=== PATIENT | male | born 1955 | race Caucasian/White ===

== ENCOUNTER 2020-10-12 22:09 | Inpatient (IN) | payer MEDICARE ==
[2020-10-12] MEDS ORDERED: IPRATROPIUM/ALBUTEROL 0.5-2.5 MG/3 ML AMPUL NEB ONE (22:23)
[2020-10-12] MEDS: ALBUTEROL SULFATE 0.083% NEB 2.5 MG/3 ML AMPUL NEB SCH ×2 (22:29→22:39)
[2020-10-12 23:08] LABS: ABSOLUTE BASOPHILS # (AUTO) 0.1 10^3/uL (0.0-0.2); ABSOLUTE EOSINOPHILS # (AUTO) 0.6 10^3/uL (0.0-0.6); ABSOLUTE LYMPHOCYTES (AUTO) 3.1 10^3/uL (0.5-4.7); ABSOLUTE MONOCYTES (AUTO) 0.8 10^3/uL (0.1-1.4); ABSOLUTE NEUT (AUTO) 5.5 10^3/uL (1.7-8.2); EOSINOPHILS % (AUTO) 6.2 % (0-6); HEMATOCRIT 37.2 % (37.9-51.0); HEMOGLOBIN 12.3 g/dL (13.5-17.0); LYMPHOCYTES % (AUTO) 30.3 % (13-45); MEAN CORPUSCULAR HEMOGLOBIN 33.3 pg (27.0-33.4); MEAN CORPUSCULAR HGB CONC 33.2 g/dL (32.0-36.0); MEAN CORPUSCULAR VOLUME 100 fl (80-97); MONOCYTES % (AUTO) 7.8 % (3-13); PLATELET COUNT 256 10^3/uL (150-450); RED BLOOD COUNT 3.71 10^6/uL (4.35-5.55); RED CELL DISTRIBUTION WIDTH 14.3 % (11.5-14.0); SEGMENTED NEUTROPHILS % (AUTO) 54.7 % (42-78); TOTAL CELLS COUNTED % (AUTO) 100 %; WHITE BLOOD COUNT 10.1 10^3/uL (4.0-10.5)
[2020-10-12] MEDS ORDERED: ONDANSETRON HCL INJ/PF 4 MG/2 ML SDV IV ONE (23:10)
[2020-10-12] MEDS ORDERED: ACETAMINOPHEN 325 MG TABLET PO ONE (23:11)
--- NOTE | 2020-10-12 23:14 | ER Document Report ---
ED Respiratory Problem - General Chief Complaint: Respiratory Distress Stated Complaint: SHORTNESS OF BREATH Time Seen by Provider: 10/12/20 23:00 Notes: Patient is a 65-year-old male who comes to the emergency department for chief complaint of difficulty breathing that started a couple of hours prior to her arrival. Patient comes by EMS, reportedly patient was initially in the 70s oxygen saturation, had labored breathing, expiratory wheezes. Patient was given albuterol, Xopenex, 125 mg of Solu-Medrol. Patient was placed on CPAP origina lly and transitioned to nasal cannula upon improvement on arrival to the emergency department per nursing staff. Patient states he feels much improved now, he states that after the treatments he started getting a headache, he denies chest pain, cough, fever, or any other complaints at this time. Patient has a history of COPD, admits that he just started smoking again this week. He had a negative Covid screening by EMS, denies Covid exposures. Past medical history of hypertension, COPD, he is on Suboxone, and he has aortic valve disease and is scheduled for aortic valve replacement in the upcoming weeks at [facility]. - Related Data Allergies/Adverse Reactions: No Known Allergies Allergy (Unverified 10/12/20 22:23) Past Medical History - General Information source: Patient - Social History Smoking Status: Current Every Day Smoker Smoking Education Provided: Yes - <3 min Frequency of alcohol use: None Drug Abuse: None Lives with: Family Family History: Reviewed & Not Pertinent Patient has homicidal ideation: No - Past Medical History Cardiac Medical History: Reports: Hx Congestive Heart Failure, Hx Coronary Artery Disease, Hx Hypercholesterolemia, Hx Hypertension Pulmonary Medical History: Reports: Hx COPD - Immunizations Immunizations up to date: Yes Hx Diphtheria, Pertussis, Tetanus Vaccination: Yes Review of Systems - Review of Systems Constitutional: No symptoms reported EENT: No symptoms reported Cardiovascular: See HPI Respiratory: See HPI Gastrointestinal: No symptoms reported Genitourinary: No symptoms reported Male Genitourinary: No symptoms reported Musculoskeletal: No symptoms reported Skin: No symptoms reported Hematologic/Lymphatic: No symptoms reported Neurological/Psychological: No symptoms reported Physical Exam - Vital signs Vitals: Temp 97.8 F 10/12/20 22:09 - Notes Notes: GENERAL: Alert, interacts well. No acute distress. HEAD: Normocephalic, atraumatic. EYES: Pupils equal, round, and reactive to light. Extraocular movements intact. ENT: Oral mucosa moist, tongue midline. Oropharynx unremarkable. Airway patent. NECK: Full range of motion. Supple. Trachea midline. No lymphadenopathy. LUNGS: Decreased breath sounds bilaterally. Scant expiratory wheezes and coarse breath sounds bilaterally. No tachypnea or labored breathing HEART: Regular rate and rhythm. No murmur ABDOMEN: Soft, non-tender. Non-distended. EXTREMITIES: Moves all 4 extremities spontaneously. 1+ pitting edema bilaterally. Normal distal neurovascular exam. No cyanosis. BACK: no cervical, thoracic, lumbar midline tenderness. No saddle anesthesia, normal distal neurovascular exam. Moves all extremities in full range of motion. NEUROLOGICAL: Alert and oriented x3. Normal speech. Cranial nerves II through XII grossly intact. Strength 5/5 in all extremities. PSYCH: Normal affect, normal mood. SKIN: Warm, dry, normal turgor. No rashes or lesions noted. Course - Re-evaluation Re-evalutation: Patient with a new oxygen requirement, expiratory wheezes, and lower extremity edema. He was initially hypertensive as well. I suspect mixed COPD and CHF exacerbation. Patient significantly improved with breathing treatments and he received steroids from EMS. Patient given an additional DuoNeb for wheezing. X-ray does show pulmonary vascular congestion and he was given Lasix. Blood pressure however significantly improved now and no nitroglycerin was given. CBC nonspecific, chemistry shows mild renal insufficiency, pH 7.45 without shift, BNP elevated, troponin indeterminate especially given initial hypoxia and interstitial edema on chest x-ray. There are some ST segment depressions on the EKG but patient has not had any chest pain, does not have chest pain now, and I do not have a comparison EKG. I discussed patient presentation, evaluation, and work-up with Dr. Freeman. Recommendation is admission here for COPD and CHF exacerbation. I discussed with patient, he states appreciation and agreement. Discussed with Dr. Miller, hospitalist, patient accepted to telemetry full admission. - Vital Signs Vital signs: Temp Pulse Resp BP Pulse Ox 97.5 F 66 18 100/64 98 10/13/20 05:14 10/13/20 05:53 10/13/20 05:14 10/13/20 05:53 10/13/20 05:14 - Laboratory Result Diagrams: 10/12/20 21:45 10/12/20 12:45 Laboratory results interpreted by me: 10/12/20 10/12/20 10/12/20 12:45 21:45 21:45 RBC 3.71 L Hgb 12.3 L Hct 37.2 L MCV 100 H RDW 14.3 H Eos % (Auto) 6.2 H VBG pH BUN 22 H Creatinine 1.62 H Est GFR ( Amer) 52 L Est GFR (MDRD) Non-Af 43 L Glucose 302 H Creatine Kinase 211 H NT-Pro-B Natriuret Pep 2430 H Total Protein 8.3 H 10/12/20 23:27 RBC Hgb Hct MCV RDW Eos % (Auto) VBG pH 7.25 L BUN Creatinine Est GFR ( Amer) Est GFR (MDRD) Non-Af Glucose Creatine Kinase NT-Pro-B Natriuret Pep Total Protein - EKG Interpretation by Me Additional EKG results interpreted by me: EKG shows sinus tachycardia at a rate of 123, QTc of 492, normal axis, ST segment depression in V3 and V4, T wave inversions laterally. No previous EKG for comparison. Discharge - Discharge Clinical Impression: COPD exacerbation, Shortness of breath, Hypoxia CHF exacerbation Qualifiers: Heart failure type: unspecified Qualified Code(s): I50.9 - Heart failure, unspecified Condition: Stable Disposition: ADMITTED INPATIENT Admitting Provider: Paul (Hospitalist) Unit Admitted: Telemetry
[2020-10-12 23:23] LABS: ALBUMIN 4.8 g/dL (3.5-5.0); ALKALINE PHOSPHATASE 79 U/L (38-126); ANION GAP 11 (5-19); ASPARTATE AMINO TRANSFERASE 54 U/L (17-59); BILIRUBIN,DIRECT 0.1 mg/dL (0.0-0.4); BILIRUBIN,TOTAL 0.3 mg/dL (0.2-1.3); BLOOD UREA NITROGEN 22 mg/dL (7-20); CALCIUM 9.5 mg/dL (8.4-10.2); CARBON DIOXIDE 28 mmol/L (22-30); CHLORIDE 102 mmol/L (98-107); CREATINE KINASE 211 U/L (55-170); GLUCOSE 302 mg/dL (75-110); POTASSIUM 4.9 mmol/L (3.6-5.0); TOTAL PROTEIN 8.3 g/dL (6.3-8.2)
--- NOTE | 2020-10-12 23:26 | RADIOLOGY REPORT (SQ) ---
EXAM DESCRIPTION: XR CHEST 1 VIEW COMPLETED DATE/TME: 10/12/2020 22:53 CLINICAL HISTORY: SOB COMPARISON: None. FINDINGS: Single frontal radiograph view of the chest. Cardiomediastinal silhouette: Atherosclerotic calcification of the thoracic aorta. Cardiomegaly. Lungs: Diffuse bilateral interstitial opacities. No pneumothorax or large effusion. Bones: Degenerative endplate spondylosis. Upper abdomen: No abnormality identified. IMPRESSION: 1. Cardiomegaly with interstitial pulmonary edema pattern.
[2020-10-12 23:35] LABS: CREATINE KINASE MB 4.46 ng/mL (<4.55)
[2020-10-12 23:37] LABS: TROPONIN I 0.091 ng/mL
[2020-10-12 23:44] LABS: VENOUS BLOOD BASE EXCESS -4.7 mmol/L; VENOUS BLOOD HCO3 22.8 mmol/L (20-32); VENOUS BLOOD PCO2 52.8 mmHg (35-63); VENOUS BLOOD PH 7.25 (7.30-7.42)
[2020-10-12] MEDS ORDERED: FUROSEMIDE INJ/PF 40 MG/4 ML SDV IV ONE (23:59)
[2020-10-13] MEDS ORDERED: DEXTROSE 50%-WATER 25 GM/50 ML DISP.SYRIN IV PRN ×2 (01:00)
[2020-10-13] MEDS ORDERED: DEXTROSE 40% GEL 15 GM TUBE PO PRN ×2 (01:00)
[2020-10-13] MEDS ORDERED: GLUCAGON,HUMAN RECOMB 1 MG INJ IM PRN (01:00)
--- NOTE | 2020-10-13 01:28 | PDOC H&P ---
History of Present Illness Admission Date/PCP: 10/13/20 01:05 CHELSEA OCHOA PA-C History of Present Illness: LEONA VERMA is a 65 year old male with a history of insulin-dependent diabetes mellitus type 2, coronary artery disease, aortic stenosis, hyperlipidemia, and hypertension, chronically on buprenorphine as well, who presents with acute onset of shortness of breath. He said he smoked for 50 years and then he quit 7 or 8 months ago when he picked it back up in the past couple weeks. He said he had been in a meeting with some friends and then he stopped at the grocery store and while he was the grocery store he noticed that he got short of breath all of a sudden. He is not really had any preceding symptoms. He moved here not long ago from [place] while he was in the middle of a work-up for replacement of his aortic valve due to aortic stenosis. 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 I am assuming he means Vito Clark, a nurse practitioner who does cardiology in [place]. Apparently he had an echocardiogram done there, and that office is closed right now. He said he has an old prescription for Lasix but he has not taken it in a while because he is not had any swelling in his legs. He said he is been taken all of his other medications as prescribed. He said he was feeling fine right up until today. EMS came to pick him up at his house because he could not catch his breath. He has not been running a fever. EMS apparently gave him IV Solu-Medrol and a neb. He got 2 more nebs in the ER. He was very hypertensive with blood pressure in the 170s/110s. He has gotten some Lasix but is not had any output yet. Chest x-ray shows bilateral pulmonary edema. Despite his history of abrupt onset, he was checked for Covid anyway, and that was negative. Past Medical History Cardiac Medical History: Reports: Congestive Heart Failure, Coronary Artery Disease, Hyperlipidema, Hypertension Pulmonary Medical History: Reports: Chronic Obstructive Pulmonary Disease (COPD) Endocrine Medical History: Reports: Diabetes Mellitus Type 2 Renal/ Medical History: Reports: Chronic Kidney Disease Social History Lives with: Family Smoking Status: Current Every Day Smoker Frequency of Alcohol Use: None Family History Family History: Arthritis, CAD, COPD, DM, Hyperlipidemia, Hypertension Parental Family History Reviewed: Yes Children Family History Reviewed: Yes Sibling(s) Family History Reviewed.: Yes Medication/Allergy Allergies/Adverse Reactions: No Known Allergies Allergy (Unverified 10/12/20 22:23) Review of Systems All systems: reviewed and no additional remarkable complaints except as stated - All systems were reviewed and were negative except as noted in the HPI Physical Exam Vital Signs: Temp Pulse Resp BP Pulse Ox 98.7 F 16 132/100 H 97 10/12/20 22:13 10/13/20 00:01 10/13/20 00:01 10/13/20 00:01 Intake & Output 10/11/20 10/12/20 10/13/20 06:59 06:59 06:59 Weight 99.79 kg General appearance: PRESENT: no acute distress, cooperative, disheveled, obese Head exam: PRESENT: atraumatic, normocephalic Eye exam: PRESENT: EOMI, PERRLA. ABSENT: conjunctival injection, nystagmus, scleral icterus Ear exam: PRESENT: normal external ear exam Neck exam: PRESENT: full ROM, JVD - Mild. ABSENT: carotid bruit, lymphadenopathy, meningismus, tenderness, thyromegaly Respiratory exam: PRESENT: crackles - Bilateral, symmetrical, unlabored. ABSENT: accessory muscle use, chest wall tenderness, prolonged expiratory phas, rhonchi, tachypnea, wheezes Cardiovascular exam: PRESENT: RRR, +S1, +S2, systolic murmur - 3 out of 6 loudest at right upper sternal border Pulses: PRESENT: normal carotid pulses, normal femoral pulses GI/Abdominal exam: PRESENT: normal bowel sounds, soft. ABSENT: distended, guarding, rebound, tenderness Extremities exam: PRESENT: pedal edema, +2 edema. ABSENT: clubbing Musculoskeletal exam: PRESENT: deformity - He is missing the third fourth and fifth digits from his right hand Neurological exam: PRESENT: alert, awake, oriented to person, oriented to place, oriented to time, oriented to situation, CN II-XII grossly intact. ABSENT: motor sensory deficit Psychiatric exam: PRESENT: appropriate affect, normal mood Skin exam: PRESENT: dry, warm Results Laboratory Results: 10/12/20 21:45 10/12/20 12:45 10/12/20 10/12/20 10/12/20 12:45 21:45 23:27 WBC 10.1 RBC 3.71 L Hgb 12.3 L Hct 37.2 L MCV 100 H MCH 33.3 MCHC 33.2 RDW 14.3 H Plt Count 256 Seg Neutrophils % 54.7 VBG pH 7.25 L VBG pCO2 52.8 VBG HCO3 22.8 VBG Base Excess -4.7 Sodium 141.0 Potassium 4.9 Chloride 102 Carbon Dioxide 28 Anion Gap 11 BUN 22 H Creatinine 1.62 H Est GFR ( Amer) 52 L Glucose 302 H Calcium 9.5 Total Bilirubin 0.3 AST 54 Alkaline Phosphatase 79 Total Protein 8.3 H Albumin 4.8 10/12/20 10/12/20 12:45 21:45 Creatine Kinase 211 H CK-MB (CK-2) 4.46 Troponin I 0.091 NT-Pro-B Natriuret Pep 2430 H Impressions: Chest X-Ray 10/12/20 22:24 IMPRESSION: 1. Cardiomegaly with interstitial pulmonary edema pattern. Assessment and Plan - Diagnosis (1) Hypertensive emergency Is this a current diagnosis for this admission?: Yes (2) Acute CHF Qualifiers: Heart failure type: unspecified Qualified Code(s): I50.9 - Heart failure, unspecified Is this a current diagnosis for this admission?: Yes (3) Aortic stenosis Qualifiers: Cardiac valve disease etiology: etiology unspecified Qualified Code(s): I35.0 - Nonrheumatic aortic (valve) stenosis Is this a current diagnosis for this admission?: Yes (4) Coronary artery disease Qualifiers: Coronary Disease-Associated Artery/Lesion type: [place] artery [place] vs. transplanted heart: [place] heart Associated angina: without angina Qualified Code(s): I25.10 - Atherosclerotic heart disease of [place] coronary artery without angina pectoris Is this a current diagnosis for this admission?: Yes (5) Hyperlipidemia Qualifiers: Hyperlipidemia type: unspecified Qualified Code(s): E78.5 - Hyperlipidemia, unspecified Is this a current diagnosis for this admission?: Yes (6) Insulin dependent type 2 diabetes mellitus Is this a current diagnosis for this admission?: Yes (7) Hypertension Qualifiers: Hypertension type: essential hypertension Qualified Code(s): I10 - Essential (primary) hypertension Is this a current diagnosis for this admission?: Yes (8) Obesity (BMI 30.0-34.9) Is this a current diagnosis for this admission?: Yes (9) Current every day smoker Is this a current diagnosis for this admission?: Yes - Plan Summary Summary: Despite the fact that he got some IV steroids and several nebs, I do not think COPD is a factor here. I think this all stems from his combination of comorbid diseases, including his coronary artery disease and aortic stenosis, with the possibility of chronic CHF not excluded, combined with a hypertensive emergency. He had very abrupt onset, has been smoking recently, and has not been taking Lasix. He is not wheezing at all and has no prolonged expiratory phase. He has crackles in his lung schultz bilaterally, and the edema looks fairly symmetric on his chest x-ray. I am going to give him some IV Lasix, resume his home blood pressure medications, and some nitroglycerin paste to see what effect this will have on his blood pressure and as an adjunct to his other treatments including diuresis. 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 Since he just had an echocardiogram there 2 weeks ago, we should try to get those results. He is on a fluid restriction. His creatinine is 1.62, which I think is probably chronic because his BUN was 22. Therefore I will hold Metformin for now and put him on a sliding scale. We will wean O2 as tolerated. We will see what effect the nitroglycerin has on his blood pressure before adding any as needed medications. His blood pressure had already come down some in the ER. If he starts to actually wheeze, I will reassess him to determine whether or not he would need steroids, but I really do not think that is the case. - Time Time Spent with patient: 35 or more minutes Medications reviewed and adjusted accordingly: Yes Anticipated Discharge Disposition: Home, Self Care Anticipated Discharge Timeframe: Unknown - Inpatient Certification Based on my medical assessment, after consideration of the patient's comorbidities, presenting symptoms, or acuity I expect that the services needed warrant INPATIENT care.: Yes I certify that my determination is in accordance with my understanding of Medicare's requirements for reasonable and necessary INPATIENT services [42 CFR 412.3e].: Yes Medical Necessity: Significant Comorbidiites Make Outpatient Treatment Too Risky, Need Close Monitoring Due to Risk of Patient Decompensation, Need For Continuous Telemetry Monitoring, Risk of Complication if Not Cared For in Hospital
[2020-10-13] MEDS: NITROGLYCERIN 2% OINTMENT 1 GM PACKET TP SCH ×2 (01:42→05:51)
[2020-10-13 02:07] LABS: APPEARANCE,URINE CLEAR; BILIRUBIN,URINE NEGATIVE (NEGATIVE); COLOR,URINE YELLOW; GLUCOSE, URINE 50 mg/dL (NEGATIVE); KETONES,URINE NEGATIVE (NEGATIVE); LEUKOCYTE ESTERASE,URINE NEGATIVE (NEGATIVE); NITRITE,URINE NEGATIVE (NEGATIVE); PROTEIN,URINE >=500 mg/dL (NEGATIVE); UROBILINOGEN,URINE NEGATIVE mg/dL (<2.0)
[2020-10-13] MEDS ORDERED: HEPARIN SOD (PORCINE) 5,000 UNIT/ML 1 ML VIAL SUBCUT SCH (06:00)
[2020-10-13] MEDS: INSULIN LISPRO 100 UNIT/ML 3 ML VIAL SUBCUT SCH ×4 (07:44→21:25)
[2020-10-13] MEDS ORDERED: ASPIRIN 325 MG TABLET PO ONE (10:00)
[2020-10-13] MEDS ORDERED: ENALAPRIL MALEATE 10 MG TABLET PO SCH (10:00)
[2020-10-13] MEDS ORDERED: ENOXAPARIN SODIUM INJ 100 MG/1 ML DISP.SYRIN SUBCUT ONE (10:01)
[2020-10-13] MEDS: CARVEDILOL 12.5 MG TABLET PO SCH ×2 (10:13→21:24)
[2020-10-13] MEDS: FUROSEMIDE INJ/PF 40 MG/4 ML SDV IV SCH ×2 (10:13→21:25)
--- NOTE | 2020-10-13 11:53 | EKG REPORT ---
SEVERITY:- ABNORMAL ECG - SINUS RHYTHM PROBABLE INFERIOR INFARCT, OLD REPOL ABNRM SUGGESTS ISCHEMIA, DIFFUSE LEADS, NO OLD EKGS TO COMPARE. : Confirmed by: Kyle Iqbal MD 13-Oct-2020 11:53:22
--- NOTE | 2020-10-13 13:26 | RADIOLOGY REPORT (SQ) ---
EXAM DESCRIPTION: VENOUS BILATERAL LOWER IMAGES COMPLETED DATE/TIME: 10/13/2020 1:09 pm REASON FOR STUDY: SOB r/o DVT COMPARISON: None. TECHNIQUE: Dynamic and static goode scale and color images acquired of both lower extremity venous sy stems. Selected spectral images acquired with additional compression and augmentation maneuvers. Imag es stored on PACS. LIMITATIONS: None. FINDINGS: RIGHT LEG COMMON FEMORAL AND FEMORAL: Normal phasicity, compression and augmentation. No visualized echogenic m aterial on goode scale. No defects on color images. POPLITEAL: Normal compression and augmentation. No visualized echogenic material on goode scale. No de fects on color images. CALF VESSELS: Normal compression and augmentation. No visualized echogenic material on goode scale. No defects on color image. GSV AND SSV: Normal compression. No visualized echogenic material on goode scale. No defects on color images. ANY DEEP VENOUS INSUFFICIENCY: Not evaluated. ANY EVIDENCE OF POPLITEAL CYST: No. OTHER: No other significant finding. LEFT LEG COMMON FEMORAL AND FEMORAL: Normal phasicity, compression and augmentation. No visualized echogenic m aterial on goode scale. No defects on color images. POPLITEAL: Normal compression and augmentation. No visualized echogenic material on goode scale. No de fects on color images. CALF VESSELS: Normal compression and augmentation. No visualized echogenic material on goode scale. No defects on color images. GSV AND SSV: Normal compression. No visualized echogenic material on goode scale. No defects on color images. ANY DEEP VENOUS INSUFFICIENCY: Not evaluated. ANY EVIDENCE POPLITEAL CYST: No. OTHER: No other significant finding. IMPRESSION: NO EVIDENCE DVT OR SVT IN EITHER LEG. TECHNICAL DOCUMENTATION: JOB ID: [id number] 2010 [employer] All Rights Reserved Reading location - IP/workstation name: [email or web address]
[2020-10-13] MEDS ORDERED: HYDROXYZINE PAMOATE 25 MG CAPSULE PO ONE (13:30)
--- NOTE | 2020-10-13 15:22 | PDOC TRANSFER SUMMARY ---
General Admission Date/PCP: 10/13/20 01:05 CHELSEA OCHOA PA-C Admission Date: 10/13/20 Transfer Date: 10/13/20 Accepting Facility: Other (Comments) - [facility] Resuscitation Status: Full Code - Transfer Diagnosis (1) NSTEMI (non-ST elevated myocardial infarction) Is this a current diagnosis for this admission?: Yes Diagnosis Summary: -Patient came in due to shortness of breath, no chest pain -EKG showed sinus rhythm, Q waves in 2 3 aVF, ST depression V4 V5 -Found in 0.09 up to 6.0 -He was given aspirin 4 tabs p.o. and therapeutic Lovenox -Patient accepted for transfer at [facility] for urgent angiogram -Dr. Osvaldo Horne from cardiology service was consulted here (2) Acute CHF Is this a current diagnosis for this admission?: Yes Diagnosis Summary: - came in due to SOB, has hx of CAD and aortic stenosis scheduled for Angiogram on at [facility] - BNP 2430 - EKG sinus rhythm, old inferior infarct with St depression V4-V5 - Troponin o.09>6.0 - CXR cardiomegaly with interstitial pulmonary edema pattern. -Received 1 dose of Lasix IV 40 mg and was started on 40 mg IV every 12 -Also received Nitropaste 0.5 g 2 doses -In light of increasing troponin and acute CHF with aortic stenosis he would need an urgent angiogram hence [facility] was called and they graciously accepted him today. (3) Aortic stenosis Is this a current diagnosis for this admission?: Yes Diagnosis Summary: -Diagnosed with aortic stenosis several years ago, asymptomatic. Patient was monitored every 6 months with echo and he was told last year that he would need aortic valve replacement. -He follows with a church supervisor in [place] and had a recent echo a few days ago. -He was scheduled to have an angiogram on at [facility] with Dr. Huang in preparation for aortic valve replacement -Patient to be transferred to [facility] for urgent angiogram (4) Coronary artery disease Is this a current diagnosis for this admission?: Yes Diagnosis Summary: -According to the patient he had an angiogram about 2 years ago and was told he had a blood vessel in the site that was 100% blocked. -Currently on Lipitor, carvedilol, aspirin, enalapril (5) Hypertensive emergency Is this a current diagnosis for this admission?: Yes Diagnosis Summary: -Blood pressure of 178/110 with associated shortness of breath, pulmonary congestion, NSTEMI -Was given Lasix and Nitropaste (6) Hypertension Is this a current diagnosis for this admission?: Yes Diagnosis Summary: Came in with a blood pressure of 178/110 -Given Nitropaste and Lasix, blood pressure decreased to 92/54. -At home he is on carvedilol, enalapril for high blood pressure (7) Hyperlipidemia Is this a current diagnosis for this admission?: Yes Diagnosis Summary: Lipitor 80 mg (8) Insulin dependent type 2 diabetes mellitus Is this a current diagnosis for this admission?: Yes Diagnosis Summary: -At home he is on Tresiba 35 units daily (9) COPD (chronic obstructive pulmonary disease) Is this a current diagnosis for this admission?: Yes Diagnosis Summary: -Current everyday smoker 1 pack a day for 50 years stopped briefly for 8 months and resumed again a few weeks ago. -Chest x-ray showed pulmonary congestion -He is not on any inhaler for COPD (10) Obesity (BMI 30.0-34.9) Is this a current diagnosis for this admission?: Yes (11) Current every day smoker Is this a current diagnosis for this admission?: Yes - Transfer Medications Home Medications: Aspirin [Ecotrin 81 mg EC Tablet] 81 mg PO DAILY 10/13/20 Atorvastatin Calcium [Lipitor 80 mg Tablet] 80 mg PO QHS 10/13/20 Buprenorphine HCl/Naloxone HCl [Buprenorphin-Naloxon 8-2 mg Sl] 1 each SL Q12 10/13/20 Bupropion HCl [Wellbutrin 75 mg Tablet] 150 mg PO Q12 10/13/20 Carbamazepine [Tegretol 200 Mg Tablet] 200 mg PO Q12 10/13/20 Carvedilol [Coreg 12.5 mg Tablet] 25 mg PO Q12 10/13/20 Enalapril Maleate 20 mg PO DAILY 10/13/20 Insulin Degludec [Tresiba Flextouch U-100] 35 units SUBCUT DAILY 10/13/20 Metformin HCl [Glucophage 500 mg Tablet] 1,000 mg PO BIDBS 10/13/20 Quetiapine Fumarate [Quetiapine Fumarate ER] 300 mg PO QHS 10/13/20 Transfer Medications: Current Medications Carvedilol (Carvedilol 12.5 Mg Tablet) 25 mg PO Q12 [facility] Stop: 11/12/20 09:59 Last Admin: 10/13/20 10:13 Dose: 25 mg Documented by: Dextrose (Dextrose 50%-Water 25 Gm/50 Ml Disp.Syrin) 12.5 gm IV PRN PRN; Protocol PRN Reason: FOR BG 50-69 IN ALERT PATIENT Stop: 11/12/20 00:59 Dextrose (Dextrose 50%-Water 25 Gm/50 Ml Disp.Syrin) 25 gm IV PRN PRN; Protocol PRN Reason: PER PROTOCOL Stop: 11/12/20 00:59 Enalapril Maleate (Enalapril Maleate 10 Mg Tablet) 20 mg PO DAILY [facility] Stop: 11/12/20 09:59 Last Admin: 10/13/20 10:13 Dose: 20 mg Documented by: Furosemide (Furosemide Inj/Pf 40 Mg/4 Ml Sdv) 40 mg IV Q12 [facility] Stop: 11/12/20 09:59 Last Admin: 10/13/20 10:13 Dose: 40 mg Documented by: Glucagon (Glucagon,Human Recomb 1 Mg Inj) 1 mg IM PRN PRN; Protocol PRN Reason: Evaluate for BG < 70 Stop: 11/12/20 00:59 Glucose (Dextrose 40% Gel 15 Gm Tube) 15 gm PO PRN PRN; Protocol PRN Reason: FOR BG 50-69 IN ALERT PATIENT Stop: 11/12/20 00:59 Glucose (Dextrose 40% Gel 15 Gm Tube) 30 gm PO PRN PRN; Protocol PRN Reason: FOR BG < 50 IN ALERT PATIENT Stop: 11/12/20 00:59 Insulin Human Lispro (Insulin Lispro 100 Unit/Ml 3 Ml Vial) 0 - 12 unit SUBCUT [facility]; Protocol Stop: 11/12/20 07:59 Last Admin: 10/13/20 12:37 Dose: 4 unit Documented by: - Allergies Allergies/Adverse Reactions: No Known Allergies Allergy (Unverified 10/12/20 22:23) - Diet/Activity Discharge Diet: Cardiac Discharge Activity: Bedrest Hospital Course Hospital Course: LEONA VERMA is a 65 year old male with a history of insulin-dependent diabetes mellitus type 2, coronary artery disease, aortic stenosis, hyperlipidemia, and hypertension, chronically on buprenorphine as well, who presents with acute onset of shortness of breath. He said he smoked for 50 years and then he quit 7 or 8 months ago when he picked it back up in the past couple weeks. He said he had been in a meeting with some friends and then he stopped at the grocery store and while he was the grocery store he noticed that he got short of breath all of a sudden. He is not really had any preceding symptoms. He moved here not long ago from [place] while he was in the middle of a work-up for replacement of his aortic valve due to aortic stenosis. He said he had an echocardiogram done 2 weeks ago and that his church supervisor is in [place], but he cannot remember his name off the top of his head. I am assuming he means Vito Clark, a nurse practitioner who does cardiology in [place]. Apparently he had an echocardiogram done there, and that office is closed right now. He said he has an old prescription for Lasix but he has not taken it in a while because he is not had any swelling in his legs. He said he is been taken all of his other medications as prescribed. He said he was feeling fine right up until today. EMS came to pick him up at his house because he could not catch his breath. He has not been running a fever. EMS apparently gave him IV Solu-Medrol and a neb. He got 2 more nebs in the ER. He was very hypertensive with blood pressure in the 170s/110s. He has gotten some Lasix but is not had any output yet. Chest x-ray shows bilateral pulmonary edema. Despite his history of abrupt onset, he was checked for Covid anyway, and that was negative. He was seen and examined at bedside this morning. He reports that his breathing is much better. His blood pressure went as low as 92/54. After review of his labs I repeated his troponin and repeat test showed troponin increased from 0.09 up to 6.0. He was given aspirin 4 tablets, and therapeutic dose of Lovenox. Repeat EKG did not show any significant change from his EKG in the ED so showing sinus rhythm, no ST elevation, Q waves in 2 3 aVF, with ST depression in V4 V5. Case was discussed with Dr. Osvaldo Horne from cardiology service recommended transfer to [facility] for urgent angiogram since he had a significant increase in his troponin. I called [facility] patient transfer center and was able to speak to Dr. Doe who graciously accepted the patient for angiogram at [facility]. Physical Exam Vital Signs: Temp Pulse Resp BP Pulse Ox 97.9 F 64 16 125/68 100 10/13/20 10:00 10/13/20 11:06 10/13/20 11:06 10/13/20 11:06 10/13/20 11:06 Intake & Output 10/12/20 10/13/20 10/14/20 06:59 06:59 06:59 Intake Total 260 750 Balance 260 750 Weight 102.1 kg General appearance: PRESENT: no acute distress, cooperative Head exam: PRESENT: atraumatic, normocephalic Eye exam: PRESENT: EOMI, PERRLA Mouth exam: PRESENT: moist Neck exam: PRESENT: full ROM Respiratory exam: PRESENT: chest wall tenderness, symmetrical, unlabored Cardiovascular exam: PRESENT: RRR, +S1, +S2 Pulses: PRESENT: +2 pedal pulses bilateral GI/Abdominal exam: PRESENT: normal bowel sounds, soft. ABSENT: rebound, tenderness Extremities exam: PRESENT: full ROM Musculoskeletal exam: PRESENT: full ROM Neurological exam: PRESENT: alert, awake, oriented to person, oriented to place, oriented to time, oriented to situation Psychiatric exam: PRESENT: anxious, appropriate affect Skin exam: PRESENT: normal color Results Laboratory Results: 10/12/20 21:45 10/12/20 12:45 10/12/20 10/12/20 10/12/20 12:45 21:45 23:27 WBC 10.1 RBC 3.71 L Hgb 12.3 L Hct 37.2 L MCV 100 H MCH 33.3 MCHC 33.2 RDW 14.3 H Plt Count 256 Seg Neutrophils % 54.7 VBG pH 7.25 L VBG pCO2 52.8 VBG HCO3 22.8 VBG Base Excess -4.7 Sodium 141.0 Potassium 4.9 Chloride 102 Carbon Dioxide 28 Anion Gap 11 BUN 22 H Creatinine 1.62 H Est GFR ( Amer) 52 L Glucose 302 H Calcium 9.5 Total Bilirubin 0.3 AST 54 Alkaline Phosphatase 79 Total Protein 8.3 H Albumin 4.8 Urine Color Urine Appearance Urine pH Ur Specific [place] Urine Protein Urine Glucose (UA) Urine Ketones Urine Blood Urine Nitrite Ur Leukocyte Esterase Urine WBC (Auto) Urine RBC (Auto) 10/13/20 01:14 WBC RBC Hgb Hct MCV MCH MCHC RDW Plt Count Seg Neutrophils % VBG pH VBG pCO2 VBG HCO3 VBG Base Excess Sodium Potassium Chloride Carbon Dioxide Anion Gap BUN Creatinine Est GFR ( Amer) Glucose Calcium Total Bilirubin AST Alkaline Phosphatase Total Protein Albumin Urine Color YELLOW Urine Appearance CLEAR Urine pH 5.0 Ur Specific [place] 1.010 Urine Protein >=500 H Urine Glucose (UA) 50 H Urine Ketones NEGATIVE Urine Blood SMALL H Urine Nitrite NEGATIVE Ur Leukocyte Esterase NEGATIVE Urine WBC (Auto) 0 Urine RBC (Auto) 1 10/12/20 10/12/20 10/13/20 12:45 21:45 08:58 Creatine Kinase 211 H CK-MB (CK-2) 4.46 Troponin I 0.091 6.070 NT-Pro-B Natriuret Pep 2430 H Impressions: Chest X-Ray 10/12/20 22:24 IMPRESSION: 1. Cardiomegaly with interstitial pulmonary edema pattern. Venous Doppler Study 10/13/20 00:00 IMPRESSION: NO EVIDENCE DVT OR SVT IN EITHER LEG. Plan Discharge Plan: Patient accepted for transfer at [facility]. Time Spent: Greater than 30 Minutes
--- NOTE | 2020-10-13 16:47 | EKG REPORT ---
SEVERITY:- ABNORMAL ECG - SINUS TACHYCARDIA BORDERLINE INFERIOR Q WAVES REPOL ABNRM SUGGESTS ISCHEMIA, DIFFUSE LEADS BORDERLINE PROLONGED QT INTERVAL LA ENLARGEMENT : Confirmed by: Kyle Iqbal MD 13-Oct-2020 16:46:29
[2020-10-13 21:56] VITALS: BP 143/82
== END 2020-10-13 22:20 | disposition short-term general hospital (02) | DRG 281 ==
LOC: ER 22:09 → EH 10-13 01:05 → 4N 10-13 02:39
PROVIDERS: ADMIT Family Medicine; ATTEND Internal Medicine
DX: I21.4 Non-ST elevation (NSTEMI) myocardial infarction (principal); I16.1 Hypertensive emergency; I13.0 Hypertensive heart and chronic kidney disease with heart failure and stage 1 through stage 4 chronic kidney disease, or unspecified chronic kidney disease; I50.9 Heart failure, unspecified; N18.9 Chronic kidney disease, unspecified; J44.9 Chronic obstructive pulmonary disease, unspecified; E11.22 Type 2 diabetes mellitus with diabetic chronic kidney disease; I35.8 Other nonrheumatic aortic valve disorders; F17.210 Nicotine dependence, cigarettes, uncomplicated; I25.10 Atherosclerotic heart disease of native coronary artery without angina pectoris; E78.00 Pure hypercholesterolemia, unspecified; I35.0 Nonrheumatic aortic (valve) stenosis; E66.9 Obesity, unspecified; Z20.828 Contact with and (suspected) exposure to other viral communicable diseases; Z79.82 Long term (current) use of aspirin; Z79.899 Other long term (current) drug therapy; Z79.4 Long term (current) use of insulin; Z82.49 Family history of ischemic heart disease and other diseases of the circulatory system; Z82.5 Family history of asthma and other chronic lower respiratory diseases; Z68.30 Body mass index [BMI] 30.0-30.9, adult
CPT/HCPCS: 36415; 71045; 80053; 81001; 82550; 82553; 82803; 82962; 83880; 84484; 85025; 93005; 93010; 93970; 94640; 96374; 96375; 99285; J1644; J1650; J1815; J1940; J2405; J3490; J7613